=== PATIENT | female | born 2005 | race Hispanic/Latino ===

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

== ENCOUNTER 2023-11-10 08:21 | Emergency (ER) | payer BC ==
[~2023-11-10] VITALS: Ht 157.5 cm; Wt 49.9 kg
[~2023-11-10 08:21] MED LIST: CEFDINIR300 MG PO; FIORICET 50-301 EACH PO; ONDANSETRON ODT4 MG PO
[2023-11-10] MEDS ORDERED: DEXAMETHASONE SOD PHOS INJ 4 MG/ML SDV ONE (08:35)
[2023-11-10] MEDS ORDERED: FAMOTIDINE 20 MG/2 ML VIAL IV ONE (08:36)
[2023-11-10] MEDS ORDERED: METOCLOPRAMIDE HCL 10 MG/2ML VIAL ONE (08:36)
[2023-11-10] MEDS ORDERED: SODIUM CHLORIDE 0.9% 1000ML 1,000 ML ONE (08:36)
[2023-11-10] MEDS ORDERED: DIPHENHYDRAMINE HCL INJ 50 MG/ML VIAL ONE (08:36)
[2023-11-10] MEDS: FAMOTIDINE 20 MG/2 ML VIAL IV STA (09:37)
[2023-11-10] MEDS: DEXAMETHASONE SOD PHOS INJ 4 MG/ML SDV IV ONE (09:38)
[2023-11-10] MEDS: DIPHENHYDRAMINE HCL INJ 50 MG/ML VIAL IV ONE (09:38)
[2023-11-10] MEDS: METOCLOPRAMIDE HCL 10 MG/2ML VIAL IV ONE (09:38)
[2023-11-10] MEDS: KETOROLAC TROMETHAMINE 30 MG/ML VIAL IV STA (09:39)
[2023-11-10] MEDS: SODIUM CHLORIDE 0.9% 1000ML 1,000 ML IV ONE (09:39)
[2023-11-10] MEDS ORDERED: KETOROLAC TROMETHAMINE 30 MG/ML VIAL ONE (09:47)
[2023-11-10] MEDS ORDERED: KETOROLAC TROME10 MG PO (11:19)
[2023-11-10] MEDS ORDERED: ONDANSETRON ODT4 MG PO (11:33)
[2023-11-10 11:39] VITALS: BP 108/68; PULSE 71; RESP 17; O2SAT 99
== END 2023-11-10 11:45 | disposition home or self-care (01) ==
LOC: FSED 08:24
DX: R51.9 Headache, unspecified (principal); N94.6 Dysmenorrhea, unspecified; R11.2 Nausea with vomiting, unspecified
CPT/HCPCS: 80053; 81003; 81025; 85025; 96374; 96375; 96376; 99283; J1100; J1200; J1885; J2765; J7030